=== PATIENT | female | born 1970 | race Hispanic/Latino ===

== ENCOUNTER 2019-06-06 14:59 | Emergency (ER) | payer BC, OTHER | END 2019-06-06 16:33 | disposition home or self-care (01) | LOC: ERS 14:59 | DX: K03.81 Cracked tooth (principal); Z87.891 Personal history of nicotine dependence | CPT/HCPCS: 99282 ==

== ENCOUNTER 2019-06-15 10:55 | Inpatient (IN) | payer BC ==
[~2019-06-15 10:55] MED LIST: Iopamidol-370 76% 500 ML 1 ML ONE
[2019-06-15 11:39] LABS: #Basophils 0.1 thou/uL (0.0-0.2); #Eosinphils 0.2 thou/uL (0.0-0.7); #Lymphocytes 3.7 thou/uL (1.20-3.40); #Monocytes 0.5 thou/uL (0.11-0.59); #Neutrophils 4.7 thou/uL (1.40-6.50); %Eosinophils 2.5 % (0.0-10.0); %Lymphocytes 40.6 % (21.0-51.0); %Monocytes 4.9 % (0.0-10.0); Mean Corpuscular HGB CONC 32.9 g/dL (32.0-36.0); Mean Corpuscular Hemoglobin 28.9 pg (27.0-31.0); Mean Corpuscular Volume 87.8 fL (78.0-98.0); Mean Platelet Volume 8.6 fL (7.4-10.4); Platelet Count 230 thou/uL (130-400); RBC Distribution Width 12.1 % (11.5-14.5); Red Blood Cell (RBC) Count 4.85 mill/uL (4.20-5.40); White Blood Cell (WBC) Count 9.1 thou/uL (4.8-10.8)
[2019-06-15 12:08] LABS: ALT (SGPT) 60 U/L (8-55); AST (SGOT) 28 U/L (5-34); Albumin 4.4 g/dL (3.5-5.0); Alkaline Phosphatase 73 U/L (40-110); Anion Gap 15 mmol/L (10-20); BUN (Urea Nitrogen) 18 mg/dL (7.0-18.7); Bilirubin, Total 0.8 mg/dL (0.2-1.2); Calc. Creatinine Clearance 0 mL/min (70-130); Calcium 9.6 mg/dL (7.8-10.44); Carbon Dioxide 23 mmol/L (22-29); Chloride 105 mmol/L (98-107); Estimated GFR-MDRD 80; Globulin 3.1 g/dL (2.4-3.5); Glucose 172 mg/dL (70-105); Potassium 3.8 mmol/L (3.5-5.1); Protein, Total 7.5 g/dL (6.0-8.3); Sodium 139 mmol/L (136-145)
[2019-06-15 14:08] LABS: Bilirubin Negative (Negative); Blood, Urine Negative (Negative); Clarity Clear (Clear); Glucose, Urine (Dipstick) Normal (Negative); Leukocyte Negative Leu/uL (Negative); Nitrite Negative (Negative); Protein, Urine (Dipstick) Negative (Neg-Trace); Urobilinogen Normal mg/dL (Less than 2)
[2019-06-15] MEDS ORDERED: Morphine 4 MG/ML VIAL ONE ×3 (14:43→19:12)
[2019-06-15] MEDS ORDERED: Ondansetron PF 4 MG/2 ML Vial ONE (14:43)
--- NOTE | 2019-06-15 15:47 | CT ---
CT ABDOMEN AND PELVIS WITH CONTRAST: 06/15/19 INDICATIONS: Abdominal pain. FINDINGS: Lung bases are clear. The liver shows diffuse low attenuation indicating diffuse fatty infiltration. Spleen and pancreas unremarkable. Stomach and duodenum unremarkable. Adrenal glands normal. Kidneys unremarkable. A tiny low density lesion inferior right renal cortex me asuring approximately 6 to 7 mm consistent with tiny cortical cyst. Small bowel loops normal. Appendix normal. Colon unremarkable. Aorta unremarkable with mild atheroscl erotic change. No adenopathy. Images through the pelvis reveal a complex mass in the right adnexa wit h fat density and soft tissue density measuring 6.2 cm diameter. This would be most consistent with a dermoid tumor. There is an adjacent low density cystic mass which may be part of this dermoid which measures 4.3 cm. The uterus is unremarkable. Left adnexa unremarkable. No free fluid. Osseous structures unremarkable. IMPRESSION: Complex mass in the right pelvic adnexa measuring up to 6 cm with fatty and soft tissue components co nsistent with a dermoid tumor. There is an adjacent cystic mass measuring 4.3 cm. Recommend [facility] consu ltation. POS: TERRY
--- NOTE | 2019-06-15 16:47 | ULT ---
Exam: Pelvic ultrasound HISTORY: Right-sided pelvic pain. COMPARISON: CT abdomen and pelvis on 06/15/2019 TECHNIQUE: Multiple grayscale and color Doppler images were obtained in a transabdominal and transvag inal pelvic ultrasound. FINDINGS: CERVIX: Grossly normal appearance on endovaginal imaging. UTERUS: Normal in size without focal abnormality. ENDOMETRIAL STRIPE: 6 mm which is within normal limits for a normal menstruating female patient. Ovalle jessica, this would be abnormal in a postmenopausal female patient. No fluid or fluid collection is seen in the endometrial canal. No free fluid is present. RIGHT OVARY: Normal appearing right ovary is not visualized. There is a complex cystic and solid mass in the right adnexa with solid portion demonstrating increased echogenicity and heterogeneity suggesting fat. This mass corresponds to the abnormality on CT scan examination which demonstrates a circumscribed fat density mass with low-attenuation areas in the mass suggesting soft tissue density. An adjacent cystic lesion is also seen on prior CT exam corresponding to findings on this st udy. The mass on this examination measures 10.1 cm x 8.6 cm x 7.2 cm. LEFT OVARY:Not visualized. IMPRESSION: 1. Complex cystic and solid mass right adnexa with findings on this examination as well as prior CT e xam demonstrating components of fat. Findings are likely related to a dermoid lesion. Gynecological consultation is recommended for further evaluation. 2. Endometrial thickness measures approximately 6 mm. While this would be normal in thickness premeno pausal female patient, this would be abnormal in thickness in a postmenopausal female patient.
[2019-06-15 18:22] LABS: BHCG - Serum Negative (NEGATIVE); Pregs Control Background? CLEAR/WHITE (CLR/WHITE); Pregs Control Bar Appear? YES (CONTROL BAR)
[2019-06-15] MEDS ORDERED: Ondansetron PF 4 MG/2 ML Vial IVP PRN (22:04)
[2019-06-15] MEDS ORDERED: Ondansetron ODT 4 MG TAB PO PRN (22:04)
[2019-06-15] MEDS ORDERED: Acetaminophen 325 MG TAB PO PRN (22:04)
[2019-06-15] MEDS ORDERED: Acetaminophen 650 MG Suppository PR PRN (22:04)
[2019-06-15] MEDS ORDERED: Morphine 2 MG/ML SYRINGE SLOW IVP PRN (22:04)
[2019-06-15] MEDS: Lactated Ringer's 1,000 ML IV SCH (22:33)
[2019-06-15] MEDS ORDERED: Albuterol Sulfate 1.25 MG/3 ML NEB NEB SCH (23:30)
--- NOTE | 2019-06-15 23:39 | HP ---
ATTENDING: Jeniffer Bryant MD RESIDENT: Telma Kumar DO DATE OF ADMISSION: 06/15/2019 HISTORY OF PRESENT ILLNESS: This is a 48-year-old female. She is a G5, P3-0-2- 3, who presents with a sudden onset of right-sided back and abdominal pain which started at 10:30 a.m. She describes this pain as being very sharp in nature and minimally relieved with IV pain medications when she presented to the emergency department. At its severity, the pain is 10/10. After medications, the pain subsides to 7/10, but is tolerable. The patient notes that she does have a history of cyst on her ovaries that have ruptured in the past. She states that this pain does feel different than the cyst ruptures previously. The patient denies any dysuria, constipation, diarrhea. She states that she has some underlying shortness of breath at baseline, for which she takes an albuterol inhaler p.r.n. She has not had lung studies to work this up further. Additionally, the patient states that she has had associated nausea, for which the IV antiemetics have helped in the ED. PAST MEDICAL HISTORY: The patient states she has a history of prediabetes. She states that she was on medications prediabetes previously, but stopped taking it. OB HISTORY: 1. Low transverse x3 at term. 2. Spontaneous x3. [facility] HISTORY: The patient reports irregular periods lasting 7 days with heavy flow occurring monthly up until 04/14/2019, at which point, she stopped having periods. She states at baseline, she is not irregular. The patient states she sees Dr. Hobbs at [facility] for gynecological needs. She had a Pap smear 6 months ago which was normal. She denies any history of abnormal Pap smears. The patient states that she had a transvaginal ultrasound [address] Hobbs as well. She states that there was no mention of any cysts at that time. PAST SURGICAL HISTORY: Low transverse x3. SOCIAL HISTORY: The patient denies alcohol, tobacco, or drug use history. MEDICATIONS: Patient takes no medications on a regular basis. She does take ibuprofen p.r.n. for pain and last took four 200 mg tablets of ibuprofen at 11: 30 this morning. ALLERGIES: PATIENT DENIES ANY MEDICATION ALLERGIES. FAMILY HISTORY: The patient denies any breast, ovarian, uterine, or colon cancer. She states that her parents and her sister both have a long-standing history of diabetes. REVIEW OF SYSTEMS: GENERAL: The patient denies fever or chills. HEENT: The patient denies any sore throat or rhinorrhea. CARDIOLOGY: The patient denies chest pain or palpitations. RESPIRATORY: The patient endorses history of shortness of breath. She states that she is currently short of breath, but not having any significant difficulty breathing. She has been prescribed an albuterol inhaler in the past for p.r.n. use associated with shortness of breath. She denies any associated cough or congestion. ABDOMEN: The patient endorses diffuse abdominal pain, worse in the right lower quadrant. She also endorses right-sided low back pain. EXTREMITIES: The patient denies any significant swelling or discoloration to her lower extremities. SKIN: The patient denies any new rashes or lesions. 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 Prior to this, patient's menstrual was irregular lasting every 7 days with heavy in flow. She has not had any spotting or discharge since LMP. LABS/IMAGING: CBC: WBC 9.1, Hg 14.0, Hct 42.6, Plat 230 CMP: Na 139, K 3.8, Cl 105, HCO3 23, BUN 18, Cr 0.77, Glucose 172 TVUS: Complex mass in the right pelvic adnexa [id number]. CT: Complex adnexal mass measuring up to 6 cm without any soft-tissue components consistent with a dermoid tumor. There is also an adjacent cystic mass measuring 4.3 cm. Endometrial thickness 6 mm. PHYSICAL EXAMINATION: VITAL SIGNS: Blood pressure 166/79, pulse 68, respiratory rate 18, oxygen saturation 95% on room air. GENERAL: The patient is alert and oriented x3. She is in mild distress secondary to pain. CARDIOLOGY: Regular rate and rhythm. No significant murmurs. RESPIRATORY: Clear to auscultation bilaterally. No acute respiratory distress. ABDOMEN: Tender to palpation in the right lower quadrant. No rebound tenderness. Patient does have some referred pain with palpation to the left lower quadrant. No peritoneal signs evident during examination. Bowel sounds present. EXTREMITIES: No cyanosis or edema. Pulses equal to palpation bilaterally. SKIN: No significant rashes or lesions. ASSESSMENT AND PLAN: 1. Intractable pain. The patient has a complex mass in the right pelvic adnexa measuring up to 10 cm with components consistent with a dermoid tumor. This is likely contributing to patient's pain. Dr. Bryant with [facility] and myself both had a discussion with patient regarding plan of care. There is no indication right now to proceed with emergent surgery as patient is stable and pain is controlled with medications at this time. We will admit patient to [facility] for pain management with q.4 hours morphine p.r.n. for moderate to severe pain with q.2 hours morphine for breakthrough pain. If abdominal pain worsens or patient shows signs of decompensation, then we will proceed with operation as indicated. At this time , we will notify OR and get patient on the OR board for tomorrow. This was discussed with the patient and she is agreeable with this plan. Consents were signed. We will make patient n.p.o. at midnight in preparation for surgery. Patient did have a CBC done on admission which showed hemoglobin 14.0 and hematocrit 42.6 with platelet count of 230. 2. Large right complex ovarian cyst. As mentioned above, this is a 10cm cyst consistent with a dermoid tumor. This case was discussed between Dr. Bryant and Dr. Escaimlla and decision was made to proceed with surgical intervention in a controlled manner in the morning with pain control overnight. The patient agreed to this plan and consents were signed. Vital signs stable. Hemoglobin and hematocrit stable. Patient is afebrile. White count 9.1 with no indication of left shift or infectious etiology. Tumor markers were obtained to further evaluate the etiology of this right adnexal mass. We will plan for exploratory laparotomy with RSO in the a.m. The patient will be made n.p.o. at midnight in preparation for surgery. 3. Prediabetes. Patient's fasting blood glucose was 173 on labs today. Patient likely does have underlying diabetes, untreated. She will discuss this further with her primary care physician in outpatient setting. 4. Transaminitis. Patient has an elevated ALT of 60. This could represent an underlying etiology which includes fatty liver disease based on patient's body habitus. I would recommend repeat labs in outpatient setting. DISPOSITION: Admit to [facility] with plans for surgical intervention in the morning. Anticipate length of stay greater than 48 hours. Job ID: [id number] [facility]
[2019-06-16] MEDS: Morphine 4 MG/ML VIAL SLOW IVP PRN ×2 (00:07→03:57)
[2019-06-16] MEDS ORDERED: Fentanyl 100 MCG/2 ML VIAL ONE ×3 (07:12→10:04)
--- NOTE | 2019-06-16 07:44 | PDOC.FM ---
- Subjective Subjective: Patient doing well this AM. She still endorses pain, particularly with ambulation. Pain still located in right lower back and right lower abdomen. VSS. - Objective MAR Reviewed: Yes Vital Signs & Weight: Vital Signs (12 hours) Temp Pulse Resp BP Pulse Ox 06/16/19 04:02 98.3 F 68 16 145/64 H 96 06/15/19 23:40 55 L 16 100 06/15/19 22:00 98.2 F 71 18 149/67 H 97 Weight Weight 108 kg I&O: 06/15/19 06/16/19 06/17/19 06:59 06:59 06:59 Output Total 400 Balance -400 Result Diagrams: 06/15/19 11:15 06/15/19 11:15 EKG Reviewed by me: Yes Radiology Reviewed by me: Yes Phys Exam - Physical Examination Constitutional: NAD HEENT: moist MMs Wheezing bilaterally Cardiovascular: RRR Gastrointestinal: soft Mildly TTP in right lower quadrant Musculoskeletal: no edema, pulses present Neurological: non-focal, moves all 4 limbs Psychiatric: normal affect, A&O x 3 Skin: no rash, cap refill <2 seconds Dx/Plan (1) Adnexal mass Code(s): N94.89 - OTH COND ASSOC W FEMALE GENITAL ORGANS AND MENSTRUAL CYCLE Status: Acute - Plan Plan: Large right sided complex adnexal mass - appx 10 cm in total, complex; suspect dermoid - pain well controlled overnight - plan to proceed with laparatomy this AM; case discussed in detail appropriate parties - Tumor markers negative - Will send mass for path - Consents signed Dispo: Proceed with laparatomy this AM. Addendum - Attending - Attending Attestation Date/Time: 06/16/19 0818 I personally evaluated the patient and discussed the management with Dr. Kumar. I agree with the History, Examination, Assessment and Plan documented above with any addition or exceptions noted below. Risks, benefits, and alternatives discussed. All questions answered and consents were signed. Patient ready to proceed with exploratory laparotomy with RSO vs RANDALL/BSO.
[2019-06-16] MEDS ORDERED: Midazolam HCl 2 mg/2 ml Vial ONE (08:02)
--- NOTE | 2019-06-16 08:13 | PDOC.EVN ---
Event Note - Event Note Event Note: 48 yo LAF admitted woth 10 cm pelvic mass and pain. Scheduled for SO vs. RANDALL BSO this AM. Imaging most c/w large dermoid. Consent reviewed with pt. in detail. All questions answered.
[2019-06-16] MEDS ORDERED: FLU VACC QS2019-20(6MOS UP)/PF 60 MCG/0.5 ML SYRINGE IM ONE (09:00)
[2019-06-16] MEDS ORDERED: Ropivacaine 0.5% HCl/PF (150 MG/30 ML VIAL) ONE (09:16)
[2019-06-16] MEDS ORDERED: Ropivacaine 0.2% HCl/PF (40 MG/20 ML VIAL) ONE (09:16)
[2019-06-16] MEDS ORDERED: SUGAMMADEX SODIUM 500 MG/5 ML VIAL ONE (09:46)
[2019-06-16] MEDS ORDERED: Promethazine HCl 25 MG/ML VIAL SLOW IVP PRN (10:07)
[2019-06-16] MEDS ORDERED: Naloxone HCl 0.4 mg/ml Vial IV PRN (10:07)
[2019-06-16] MEDS ORDERED: HYDROmorphone 2 MG/ML VIAL SLOW IVP PRN (10:07)
[2019-06-16] MEDS ORDERED: Ondansetron HCl/PF 4 MG/2 ML Vial IVP PRN (10:07)
[2019-06-16] MEDS ORDERED: Meperidine HCl/PF 25 MG/ML VIAL SLOW IVP PRN (10:07)
[2019-06-16] MEDS ORDERED: diphenhydrAMINE 50 MG/ML VIAL IM PRN (10:07)
[2019-06-16] MEDS ORDERED: Zolpidem Tartrate 5 MG TAB PO PRN (10:07)
[2019-06-16] MEDS ORDERED: diphenhydrAMINE 25 MG CAP PO PRN (10:07)
[2019-06-16] MEDS ORDERED: fentaNYL Citrate/PF 2,000 MCG in Sodium Chloride 0.9% 60 ML IV PRN (10:07)
[2019-06-16] MEDS ORDERED: diphenhydrAMINE 50 MG/ML VIAL IVP PRN (10:07)
[2019-06-16] MEDS ORDERED: Ondansetron PF 4 MG/2 ML Vial IVP PRN (10:07)
[2019-06-16] MEDS ORDERED: Ketorolac Tromethamine 30 MG/ML VIAL IVP PRN (10:07)
[2019-06-16] MEDS ORDERED: Promethazine HCl 25 MG/ML VIAL IM PRN ×2 (10:07)
[2019-06-16] MEDS ORDERED: Communication Order-Pharmacy FS SCH (10:15)
[2019-06-16] MEDS ORDERED: HYDROmorphone 0.5 MG/0.5 ML SYRINGE ONE (10:37)
[2019-06-16] MEDS ORDERED: hydrALAZINE 20 MG/ML VIAL SLOW IVP PRN (10:55)
[2019-06-16] MEDS ORDERED: PROPOFOL 200 MG/20 ML VIAL ONE (11:03)
[2019-06-16] MEDS ORDERED: Lidocaine 1% PF 5 ML VIAL ONE (11:03)
[2019-06-16] MEDS ORDERED: Dexamethasone 20 MG/5 ML VIAL ONE (11:03)
[2019-06-16] MEDS ORDERED: Succinylcholine Chloride 20 MG/ML 10 ml SYRINGE FS ONE (11:03)
[2019-06-16] MEDS ORDERED: Ondansetron PF 4 MG/2 ML Vial ONE (11:03)
[2019-06-16] MEDS ORDERED: Rocuronium Bromide 10 MG/ML (10ML VIAL) ONE (11:03)
[2019-06-16] MEDS ORDERED: EPHEDRINE 25 MG/5 ML SYRINGE ONE (11:03)
[2019-06-16] MEDS: Lactated Ringer's 1,000 ML IV SCH (16:44)
[2019-06-16] MEDS: Simethicone Chewable 80 MG TAB PO PRN (20:37)
[2019-06-16] MEDS: Docusate Calcium (SURFAK) 240 MG CAP PO SCH (20:37)
[2019-06-16] MEDS: Albuterol Sulfate 1.25 MG/3 ML NEB NEB PRN (22:58)
[2019-06-17] MEDS: Lactated Ringer's 1,000 ML IV SCH ×2 (01:38→09:25)
--- NOTE | 2019-06-17 02:25 | PDOC.EVN ---
Event Note - Event Note Event Note: POD#1 S/p laparotomy with RSO for demoid. Resting. VSS, s/p 1 dose of Apresoline AF Abdomen is soft. Dressing dry. Benton with clear urine. Plan: Routine postop care. H/H this AM.
[2019-06-17 06:00] LABS: Hemoglobin 12.4 g/dL (12.0-16.0); Mean Corpuscular HGB CONC 34.7 g/dL (32.0-36.0); Mean Corpuscular Hemoglobin 30.9 pg (27.0-31.0); Mean Corpuscular Volume 89.1 fL (78.0-98.0); Mean Platelet Volume 9.3 fL (7.4-10.4); Platelet Count 210 thou/uL (130-400); RBC Distribution Width 11.9 % (11.5-14.5); Red Blood Cell (RBC) Count 4.01 mill/uL (4.20-5.40); White Blood Cell (WBC) Count 15.5 thou/uL (4.8-10.8)
[2019-06-17] MEDS: Docusate Calcium (SURFAK) 240 MG CAP PO SCH ×2 (09:14→21:14)
[2019-06-17] MEDS ORDERED: traMADol HCl 50 MG TAB PO PRN (09:52)
[2019-06-17] MEDS: traMADol HCl 50 MG TAB PO PRN ×2 (10:36→16:43)
[2019-06-17 10:41] LABS: Hemoglobin A1c 7.9 % (4.0-6.0)
[2019-06-17] MEDS: Simethicone Chewable 80 MG TAB PO PRN (11:18)
[2019-06-17] MEDS ORDERED: Ketorolac Tromethamine 30 MG/ML VIAL IVP PRN (12:08)
[2019-06-17] MEDS ORDERED: Ketorolac Tromethamine 30 MG/ML VIAL IVP SCH (12:15)
[2019-06-17] MEDS: Albuterol Sulfate 1.25 MG/3 ML NEB NEB PRN (14:42)
--- NOTE | 2019-06-17 16:03 | OP ---
DATE OF PROCEDURE: 06/16/2019 PREOPERATIVE DIAGNOSIS: Pelvic mass. POSTOPERATIVE DIAGNOSIS: Dermoid of the right ovary. PROCEDURES PERFORMED: 1. Exploratory laparotomy. 2. Right salpingo-oophorectomy. [facility] SURGEONS: 1. Joaquina Escamilla MD. 2. Fang Simon MD, resident physician. ANESTHESIA: General endotracheal. ESTIMATED BLOOD LOSS: Less than 200 mL. COMPLICATIONS: None. FINDINGS: 1. Normal uterus and left adnexa. 2. 10 cm dermoid of the right ovary. PROPHYLAXIS: Ancef 2 g prior to incision. BRIEF PATIENT DESCRIPTION: Ms. Clark is a 48-year-old female with three previous sections, who was admitted overnight with pelvic pain and a [address] and pelvic ultrasound that was most consistent with a dermoid. Consent was obtained and she was reminded of the inherent risks of anesthesia, bleeding, infection, as well as damage to adjacent organs requiring repair, removal, or transfusion. She understood all this and wished to proceed. TECHNIQUE IN DETAIL: After good general endotracheal anesthesia was achieved, the patient was prepped and draped in the supine position and placed in supine position. A Benton catheter had been placed. A transverse incision was made through a pre-existing Pfannenstiel incision and the abdomen was entered in layers. Upon entry into the peritoneal cavity, the uterus was identified and it was noted to be small with no significant sign of disease. Her left adnexa was within normal limits. On the right side, she had a 10 cm mass consistent with a dermoid. There was evidence of bleeding from the apical pole that contained her residual ovary. Decision was made to proceed with right salpingo-oophorectomy. The self- retaining retractor was placed and wet lap packs were placed. The infundibulopelvic ligament was noted high in the pelvis and was identified. This was clamped with a single Shaquille clamp. Both a freehand tie and a suture ligature were placed across this pedicle with good hemostasis. The dermoid was removed intact. The pelvis was then thoroughly irrigated and the wet lap packs and self-retaining retractor were removed. Closure of the fascia was accomplished using two sutures of PDS, brought laterally to the midline. The subcutaneous tissue was thoroughly irrigated and made dry using Bovie coagulation technique. The subcutaneous tissue was approximated using plain gut suture. The skin was closed with metal jonelle. Sponge, lap, and needle counts were correct. The patient tolerated the procedure well and was taken to the recovery room in good condition. Job ID: [id number] [facility]
[2019-06-17] MEDS: metFORMIN 500 MG TAB PO SCH (16:43)
[2019-06-17] MEDS ORDERED: Ibuprofen 800 MG TAB PO PRN (21:31)
[2019-06-18] MEDS: metFORMIN 500 MG TAB PO SCH (08:06)
[2019-06-18 08:16] VITALS: BP 150/66; TEMP 98.4
--- NOTE | 2019-06-18 09:09 | DIS ---
DATE OF ADMISSION: 06/15/2019 DATE OF DISCHARGE: 06/18/2019 DISCHARGE DIAGNOSES: 1. Pelvic pain. 2. Pelvic mass. DISCHARGE DIAGNOSIS: Suspected dermoid tumor. PROCEDURE PERFORMED: Exploratory laparotomy with right salpingo-oophorectomy for a 10 cm dermoid of the right ovary. CONSULTATIONS: None. HOSPITAL COURSE: The patient is a 48-year-old female who presented to the emergency room on 06/15/2019, with acute on chronic onset of abdominal pain being very sharp, unrelieved with IV medications. Imaging shows a 10 x 8 cm mass, complex in nature. The decision was made to take her to surgery for evaluation and underwent exploratory laparotomy with right RSO, for complete details please refer to the operative note. The patient's postoperative course has been complicated by periods of elevated blood pressure up into the 190 systolic. It was thought that this in part may be related to the pain that she had been experiencing. She received one dose of IV hydralazine during her stay, which seemed to have improved her blood pressures during the immediate postoperative period. Her pressures over the course of yesterday have been in the 130s and then up to the 150s early this morning. Most recent blood pressure is 143/68, temperature 98.9, pulse of 80, respiratory rate of 20. Also discovered during the course of her stay was a likely diagnosis of diabetes. Her fasting blood sugar yesterday was 172. Hemoglobin A1c of 7.9. The patient was placed on metformin 500 mg twice a day, a medication that she had been on in the past. Fasting blood glucose this morning is 120. Today is postoperative day two. The patient reports that she is tolerating diet. She is ambulating and is having decent pain control primarily with ibuprofen. Plan at this time is to discharge home. She has instructions to follow up this week with [facility] for staple removal. She has been given instructions to seek medical attention should she experience fever, increasing pain or bleeding, redness, drainage from the incision site. She has also been counseled to follow up with her primary provider for discussion about diabetes and chronic hypertension as the patient does appear to may have underlying blood pressure issues as well as this picture of diabetes. The patient is being discharged home in stable condition again with metformin and ibuprofen and tramadol. Job ID: [id number]
--- NOTE | 2019-06-19 12:50 | PDOC.EVN ---
Event Note - Event Note Event Note: Path report returns c/w dermoid as suspected.
== END 2019-06-18 08:56 | disposition home or self-care (01) | DRG 742 ==
LOC: ERS 10:55 → OBSVTOIN 21:58 → 3SE 21:58
PROVIDERS: ADMIT Obstetrics & Gynecology; ATTEND Obstetrics & Gynecology
PROC: 0UT50ZZ Resection of Right Fallopian Tube, Open Approach (ICD-10-PCS; principal; 2019-06-16)
PROC: 0UT00ZZ Resection of Right Ovary, Open Approach (ICD-10-PCS; 2019-06-16)
DX: D27.0 Benign neoplasm of right ovary (principal); Z68.41 Body mass index [BMI] 40.0-44.9, adult; E11.9 Type 2 diabetes mellitus without complications; I10 Essential (primary) hypertension; E66.01 Morbid (severe) obesity due to excess calories; R74.0 Nonspecific elevation of levels of transaminase and lactic acid dehydrogenase [LDH]; Z98.51 Tubal ligation status; Z87.891 Personal history of nicotine dependence
CPT/HCPCS: 36415; 36416; 74177; 76856; 80053; 81003; 82378; 83036; 83605; 83690; 84484; 84703; 85025; 85027; 86301; 86304; 88307; 93005; 96361; 96374; 96375; 96376; J0360; J0690; J1100; J1170; J1885; J2001; J2250; J2270; J2405; J2704; J2795; J3010; Q9967